=== PATIENT | male | born 1960 | race African-American/Black ===

== ENCOUNTER 2017-03-12 15:15 | Emergency (ER) | payer MEDICAID ==
[~2017-03-12] VITALS: Ht 170.2 cm; Wt 66.0 kg
[~2017-03-12 15:15] MED LIST: ALD50 PO; ASPI-1160 PO; BENA40TA66 PO; COR3 PO; CORLANOR PO; FURO-151 PO; HALO5TAB PO; METF500T4 PO; TAMS-11 PO
[2017-03-12] MEDS ORDERED: SODIUM CHLORIDE 0.9% 1,000 ML IV ONE (15:39)
[2017-03-12 15:59] LABS: EOSINOPHILS % 9.9 % (0.0-5.0); HEMATOCRIT. 43.4 % (42.0-52.0); HEMOGLOBIN. 14.2 g/dL (14.0-18.0); LYMPHOCYTES % 28.5 % (20.0-50.0); MEAN CORPUSCULAR HEMOGLOBIN 26.8 pg (28.0-32.0); MEAN CORPUSCULAR VOLUME 81.7 fL (80.0-94.0); MEAN PLATELET VOLUME 8.7 fl (7.4-10.4); MONOCYTES % 8.3 % (2.0-8.0); NEUTROPHILS % 52.3 % (40.0-76.0); PLATELET 200 x1000/uL (130-400); RED BLOOD CELL COUNT 5.31 mill/uL (4.7-6.1); RED CELL DISTRIBUTION WIDTH 14.8 % (11.6-14.6)
[2017-03-12 16:02] LABS: CHLORIDE 96 mEq/L (98-107)
[2017-03-12 16:08] LABS: AMYLASE 38 IU/L (25-115); CARBON DIOXIDE 27 mEq/L (21-32)
[2017-03-12 16:10] LABS: BETA HYDROXYBUTYRATE 0.5 mMol/L (0.0-0.3)
[2017-03-12 16:49] LABS: CLARITY URINE CLEAR (CLEAR); COLOR URINE YELLOW (YELLOW); GLUCOSE URINE 3+ (NEGATIVE); KETONES URINE TRACE (NEGATIVE); LEUKOCYTE ESTERASE URINE NEGATIVE (NEGATIVE); NITRITE URINE NEGATIVE (NEGATIVE); OCCULT BLOOD URINE NEGATIVE (NEGATIVE); PROTEIN URINE NEGATIVE (NEGATIVE); SPECIFIC GRAVITY URINE 1.045 (1.005-1.030); UROBILINOGEN URINE 0.2 E.U./dL (0.2-1.0)
[2017-03-12] MEDS ORDERED: INSULIN REGULAR (HUMULIN R) 300UNITS/3ML SUBCUT ONE (17:30)
[2017-03-12 19:00] VITALS: BP 115/86
== END 2017-03-12 19:08 | disposition home or self-care (01) ==
LOC: ER 15:36
DX: E11.65 Type 2 diabetes mellitus with hyperglycemia (principal); J44.9 Chronic obstructive pulmonary disease, unspecified; Z79.4 Long term (current) use of insulin; Z87.891 Personal history of nicotine dependence; Z79.82 Long term (current) use of aspirin
CPT/HCPCS: 36415; 80053; 81001; 82010; 82150; 82962; 83690; 85025; 93005; 96372; 99285; J1815; Z7610; J7030

== ENCOUNTER 2017-07-01 07:15 | Inpatient (IN) | payer MEDICAID ==
[2017-07-01] VITALS (44 sets, daily range): BP systolic 98–137; BP diastolic 58–98
[~2017-07-01] VITALS: Ht 172.7 cm; Wt 44.5 kg
[2017-07-01] MEDS ORDERED: SODIUM CHLORIDE 0.9% 1,000 ML IV ONE ×2 (07:29→08:18)
[2017-07-01 08:00] LABS: BASOPHILS % 0.8 % (0.0-2.0); EOSINOPHILS % 0.1 % (0.0-5.0); HEMATOCRIT. 55.3 % (42.0-52.0); LYMPHOCYTES % 13.5 % (20.0-50.0); MEAN CORPUSCULAR HEMOGLOBIN 28.4 pg (28.0-32.0); MEAN CORPUSCULAR VOLUME 92.3 fL (80.0-94.0); MEAN PLATELET VOLUME 9.7 fl (7.4-10.4); MONOCYTES % 5.5 % (2.0-8.0); NEUTROPHILS % 80.1 % (40.0-76.0); PLATELET 333 x1000/uL (130-400); RED BLOOD CELL COUNT 5.99 mill/uL (4.7-6.1); RED CELL DISTRIBUTION WIDTH 14.9 % (11.6-14.6)
[2017-07-01 08:07] LABS: AMMONIA 34 uMol/L (<32)
[2017-07-01 08:09] LABS: PROTHROMBIN TIME 10.7 sec (9.4-11.6)
[2017-07-01 08:16] LABS: BG BASE EXCESS -9.9 mmol/L (-2.0-2.0); BG CARBOXYHEMOGLOBIN 0.6 % (0.5-1.5); BG DEOXYHEMOGLOBIN 3.5 % (0.0-5.0); BG FRACTION INSPIRED OXYGEN 21; BG HCO3 ACT 15.2 mmol/L (22.0-26.0); BG METHEMOGLOBIN 0.5 % (0.0-1.5); BG OXYGEN SATURATION 96.5 % (92.0-98.5); BG OXYHEMOGLOBIN 95.4 % (94.0-97.0); BG PCO2 31.9 mmHg (35.0-45.0); BG PH 7.295 (7.350-7.450); BG PO2 96.3 mmHg (75.0-100.0); BG SAMPLE SITE RIGHT BRACHIAL; BG TOTAL HEMOGLOBIN 17.5 g/dL (12.0-18.0); BG VENT MODE ROOM AIR
[2017-07-01 08:16] LABS: CARBON DIOXIDE 16 mEq/L (21-32); CHLORIDE 87 mEq/L (98-107); ETHANOL BLOOD < 10 mg/dL; TROPONIN I < 0.02 ng/mL (0.00-0.04)
[2017-07-01] MEDS ORDERED: INSULIN REGULAR (DRIP) 100 UNITS in SODIUM CHLORIDE 0.9% 100 ML IV ONE (08:30)
[2017-07-01] MEDS ORDERED: INSULIN REGULAR (HUMULIN R) 300UNITS/3ML IV ONE (08:30)
[2017-07-01] MEDS ORDERED: PIPERACILLIN/TAZOBACTAM 3.375GM/50ML PREMIX IV ONE (08:30)
[2017-07-01] MEDS ORDERED: VANCOMYCIN 1 G PREMIX 200 ML IV SCH (08:30)
[2017-07-01] MEDS ORDERED: SODIUM CHLORIDE 0.9% 1,000 ML IV SCH ×2 (08:40→12:45)
[2017-07-01 08:42] LABS: CLARITY URINE CLEAR (CLEAR); COLOR URINE YELLOW (YELLOW); GLUCOSE URINE 3+ (NEGATIVE); KETONES URINE 1+ (NEGATIVE); LEUKOCYTE ESTERASE URINE NEGATIVE (NEGATIVE); NITRITE URINE NEGATIVE (NEGATIVE); OCCULT BLOOD URINE NEGATIVE (NEGATIVE); PROTEIN URINE NEGATIVE (NEGATIVE); SPECIFIC GRAVITY URINE 1.036 (1.005-1.030); UROBILINOGEN URINE 0.2 E.U./dL (0.2-1.0)
[2017-07-01] MEDS ORDERED: PIPERACILLIN/TAZ 3.375G PREMIX 50 ML IV SCH (08:45)
[2017-07-01] MEDS ORDERED: LORAZEPAM 2MG/ML CPJ IV ONE (09:00)
[2017-07-01] MEDS ORDERED: INSULIN REGULAR (DRIP) 100 UNITS in SODIUM CHLORIDE 0.9% 100 ML IV SCH ×2 (09:00→13:00)
[2017-07-01 09:12] LABS: *AMPHETAMINES SCREEN URINE NEGATIVE (NEGATIVE); *BARBITURATES SCREEN URINE NEGATIVE (NEGATIVE); *BENZODIAZEPINES SCREEN URINE NEGATIVE (NEGATIVE); *COCAINE SCREEN URINE NEGATIVE (NEGATIVE); CANNABINOID URINE SCREEN NEGATIVE (NEGATIVE); METHADONE URINE SCREEN NEGATIVE (NEGATIVE); OPIATES URINE SCREEN NEGATIVE (NEGATIVE); PHENCYCLIDINE URINE SCREEN NEGATIVE (NEGATIVE)
[2017-07-01] MEDS: BLOOD SUGAR DIAGNOSTIC STRIP TEST SCH ×7 (12:45→22:30)
[2017-07-01] MEDS ORDERED: DEXTROSE 50% WATER 50ML SYRINGE IV PRN ×2 (12:45)
[2017-07-01] MEDS ORDERED: HALOPERIDOL 0.5MG TABLET PO SCH (18:15)
[2017-07-01] MEDS ORDERED: DEXT 5%/0.45% NACL 1000ML 1,000 ML IV SCH (18:15)
[2017-07-01] MEDS ORDERED: CARVEDILOL 3.125 MG TABLET PO SCH ×2 (21:00)
[2017-07-01] MEDS: HALOPERIDOL 5MG TABLET PO SCH (22:46)
[2017-07-01] MEDS: METFORMIN HCL 500MG TABLET PO SCH (22:46)
[2017-07-01] MEDS: CARVEDILOL 3.125 MG TABLET PO SCH (22:47)
[2017-07-01 23:53] LABS: CHLORIDE 110 mEq/L (98-107)
[2017-07-02] VITALS (47 sets, daily range): BP systolic 82–127; BP diastolic 43–95
[2017-07-02] MEDS ORDERED: DEXTROSE 50% WATER 50ML SYRINGE IV PRN
[2017-07-02] MEDS ORDERED: INS NPH/REG HM 70-30 100 UNITS/ML 10ML VIAL (HUMULIN 70-30) SUBCUT ONE
[2017-07-02 00:03] LABS: CARBON DIOXIDE 27 mEq/L (21-32)
[2017-07-02] MEDS ORDERED: INSULIN REGULAR (HUMULIN R) 300UNITS/3ML SUBCUT SCH (01:00)
[2017-07-02 06:12] LABS: BASOPHILS % 0.9 % (0.0-2.0); EOSINOPHILS % 0.9 % (0.0-5.0); HEMATOCRIT. 44.4 % (42.0-52.0); HEMOGLOBIN. 14.5 g/dL (14.0-18.0); LYMPHOCYTES % 11.3 % (20.0-50.0); MEAN CORPUSCULAR HEMOGLOBIN 28.5 pg (28.0-32.0); MEAN PLATELET VOLUME 9.1 fl (7.4-10.4); MONOCYTES % 6.6 % (2.0-8.0); NEUTROPHILS % 80.3 % (40.0-76.0); PLATELET 241 x1000/uL (130-400); RED CELL DISTRIBUTION WIDTH 14.3 % (11.6-14.6)
[2017-07-02 06:21] LABS: CARBON DIOXIDE 24 mEq/L (21-32); CHLORIDE 110 mEq/L (98-107)
[2017-07-02] MEDS: HALOPERIDOL 5MG TABLET PO SCH ×3 (06:48→22:00)
[2017-07-02] MEDS: BLOOD SUGAR DIAGNOSTIC STRIP TEST SCH ×4 (07:57→20:06)
[2017-07-02] MEDS: SPIRONOLACTONE 25MG TABLET PO SCH (08:01)
[2017-07-02] MEDS: CARVEDILOL 3.125 MG TABLET PO SCH ×2 (08:02→20:07)
[2017-07-02] MEDS: BENAZEPRIL 20MG TABLET PO SCH (08:02)
[2017-07-02] MEDS: INSULIN LISPRO 100 UNITS/ML SUBCUT SCH ×7 (08:36→20:06)
[2017-07-02] MEDS: ASPIRIN 81MG TABLET PO SCH (08:37)
[2017-07-02] MEDS: TAMSULOSIN HCL 0.4MG SR CAPSULE PO SCH (08:37)
[2017-07-02] MEDS: METFORMIN HCL 500MG TABLET PO SCH ×2 (08:37→16:52)
[2017-07-02] MEDS ORDERED: FUROSEMIDE 40MG TABLET PO SCH ×2 (09:00)
[2017-07-02] MEDS ORDERED: ASPIRIN 81MG TABLET PO SCH ×2 (09:00)
[2017-07-02] MEDS ORDERED: SPIRONOLACTONE 50MG TABLET PO SCH (09:00)
[2017-07-02] MEDS ORDERED: TAMSULOSIN HCL 0.4MG SR CAPSULE PO SCH ×2 (09:00)
[2017-07-02] MEDS: INSULIN DETEMIR UD 100 UNITS/ML SYR SUBCUT SCH (09:59)
[2017-07-02] MEDS: GLIPIZIDE 5MG TABLET PO SCH ×2 (13:11→16:52)
[2017-07-02] MEDS: SERTRALINE HCL 50MG TABLET PO SCH (16:52)
[2017-07-02] MEDS ORDERED: HALOPERIDOL 5MG TABLET PO SCH (17:00)
[2017-07-02] MEDS ORDERED: INSULIN LISPRO 100 UNITS/ML SUBCUT SCH (17:50)
[2017-07-03] VITALS (9 sets, daily range): BP systolic 92–130; BP diastolic 65–84
[2017-07-03] MEDS: GLIPIZIDE 5MG TABLET PO SCH (05:51)
[2017-07-03] MEDS: BLOOD SUGAR DIAGNOSTIC STRIP TEST SCH ×2 (05:52→11:46)
[2017-07-03] MEDS: HALOPERIDOL 5MG TABLET PO SCH ×2 (05:52→13:11)
[2017-07-03] MEDS: INSULIN LISPRO 100 UNITS/ML SUBCUT SCH ×4 (06:03→11:46)
[2017-07-03] MEDS: SPIRONOLACTONE 25MG TABLET PO SCH (08:25)
[2017-07-03] MEDS: METFORMIN HCL 500MG TABLET PO SCH (08:25)
[2017-07-03] MEDS: TAMSULOSIN HCL 0.4MG SR CAPSULE PO SCH (08:26)
[2017-07-03] MEDS: BENAZEPRIL 20MG TABLET PO SCH (08:26)
[2017-07-03] MEDS: ASPIRIN 81MG TABLET PO SCH (08:27)
[2017-07-03] MEDS: CARVEDILOL 3.125 MG TABLET PO SCH (08:27)
[2017-07-03] MEDS: SERTRALINE HCL 50MG TABLET PO SCH (08:28)
[2017-07-03] MEDS: INSULIN DETEMIR UD 100 UNITS/ML SYR SUBCUT SCH (10:22)
== END 2017-07-03 15:05 | disposition home or self-care (01) | DRG 52 ==
LOC: ER 07:15 → CVICU 08:42 → ENRESERV 08:52 → 3WST 07-02 14:15
PROVIDERS: ADMIT Internal Medicine Nephrology; ATTEND Internal Medicine Nephrology
DX: G93.41 Metabolic encephalopathy (principal); E13.10 Other specified diabetes mellitus with ketoacidosis without coma; E44.0 Moderate protein-calorie malnutrition; E13.649 Other specified diabetes mellitus with hypoglycemia without coma; I11.0 Hypertensive heart disease with heart failure; I50.9 Heart failure, unspecified; F91.9 Conduct disorder, unspecified; Z79.84 Long term (current) use of oral hypoglycemic drugs; Z79.82 Long term (current) use of aspirin; Z79.899 Other long term (current) drug therapy; Z91.410 Personal history of adult physical and sexual abuse; Z83.3 Family history of diabetes mellitus; Z82.5 Family history of asthma and other chronic lower respiratory diseases; Z82.49 Family history of ischemic heart disease and other diseases of the circulatory system
CPT/HCPCS: 36415; 36600; 70450; 71010; 80048; 80053; 80305; 80307; 80329; 81001; 82010; 82140; 82375; 82805; 82962; 83036; 83605; 83690; 83880; 84443; 84484; 85025; 85610; 87040; 87086; 93005; 96361; 96365; 96367; 96375; 99285; G0482; J1630; J1815; J2543; J3370; J7030; J7050

== ENCOUNTER 2017-07-13 11:33 | Inpatient (IN) | payer MEDICAID ==
[~2017-07-13] VITALS: Ht 172.7 cm; Wt 65.8 kg
[2017-07-13] MEDS ORDERED: ACETAMINOPHEN 325MG TABLET PO STA (11:40)
[2017-07-13 12:04] LABS: CLARITY URINE CLEAR (CLEAR); COLOR URINE YELLOW (YELLOW); GLUCOSE URINE 3+ (NEGATIVE); KETONES URINE 2+ (NEGATIVE); LEUKOCYTE ESTERASE URINE NEGATIVE (NEGATIVE); NITRITE URINE NEGATIVE (NEGATIVE); OCCULT BLOOD URINE NEGATIVE (NEGATIVE); PROTEIN URINE NEGATIVE (NEGATIVE); SPECIFIC GRAVITY URINE 1.043 (1.005-1.030); UROBILINOGEN URINE 0.2 E.U./dL (0.2-1.0)
[2017-07-13 12:09] LABS: BASOPHILS % 0.5 % (0.0-2.0); EOSINOPHILS % 1.1 % (0.0-5.0); HEMOGLOBIN. 15.5 g/dL (14.0-18.0); LYMPHOCYTES % 20.1 % (20.0-50.0); MEAN CORPUSCULAR HEMOGLOBIN 28.6 pg (28.0-32.0); MEAN CORPUSCULAR VOLUME 86.8 fL (80.0-94.0); MEAN PLATELET VOLUME 8.4 fl (7.4-10.4); MONOCYTES % 5.1 % (2.0-8.0); NEUTROPHILS % 73.2 % (40.0-76.0); PLATELET 231 x1000/uL (130-400); RED BLOOD CELL COUNT 5.41 mill/uL (4.7-6.1); RED CELL DISTRIBUTION WIDTH 13.5 % (11.6-14.6)
[2017-07-13 12:10] LABS: PROTHROMBIN TIME 10.7 sec (9.4-11.6)
[2017-07-13 12:18] LABS: CARBON DIOXIDE 27 mEq/L (21-32); CHLORIDE 93 mEq/L (98-107)
[2017-07-13] MEDS ORDERED: SODIUM CHLORIDE 0.9% 1,000 ML IV ONE (12:29)
[2017-07-13] MEDS ORDERED: INSULIN REGULAR (HUMULIN R) 300UNITS/3ML IV ONE (12:30)
[2017-07-13 12:42] LABS: BG BASE EXCESS -1.3 mmol/L (-2.0-2.0); BG CARBOXYHEMOGLOBIN 0.9 % (0.5-1.5); BG DEOXYHEMOGLOBIN 2.7 % (0.0-5.0); BG FRACTION INSPIRED OXYGEN 21; BG METHEMOGLOBIN 0.3 % (0.0-1.5); BG OXYGEN SATURATION 97.3 % (92.0-98.5); BG OXYHEMOGLOBIN 96.1 % (94.0-97.0); BG PCO2 37.6 mmHg (35.0-45.0); BG PH 7.404 (7.350-7.450); BG SAMPLE SITE RIGHT RADIAL; BG TOTAL HEMOGLOBIN 15.7 g/dL (12.0-18.0); BG VENT MODE ROOM AIR
[2017-07-13] MEDS ORDERED: KETOROLAC 15MG/ML VIAL IV PRN (13:15)
[2017-07-13] MEDS ORDERED: CLONIDINE 0.1MG TABLET PO PRN (13:15)
[2017-07-13] MEDS ORDERED: MAGNESIUM/ALUMINUM HYDROXIDE/SIMETHICONE 30ML UDC PO PRN (13:15)
[2017-07-13] MEDS ORDERED: DOCUSATE SODIUM 100MG CAPSULE PO PRN (13:15)
[2017-07-13] MEDS ORDERED: NITROGLYCERIN 0.4MG TABLET SL SL PRN (13:15)
[2017-07-13] MEDS ORDERED: LORAZEPAM 2MG/ML CPJ IV PRN (13:15)
[2017-07-13] MEDS ORDERED: GUAIFENESIN 200MG/10ML SUGAR FREE UDC PO PRN (13:15)
[2017-07-13] MEDS ORDERED: ONDANSETRON HCL 4MG/2ML VIAL IV PRN (13:15)
[2017-07-13] MEDS ORDERED: IPRATROPIUM/ALBUTEROL 0.5-3(2.5)MG/3ML NEB INH PRN (13:15)
[2017-07-13] MEDS ORDERED: DIPHENHYDRAMINE 50MG/ML VIAL IV PRN (13:15)
[2017-07-13] MEDS ORDERED: NA PHOS,M-B/NA PHOS,DI-BA ENEMA 118ML PR PRN (13:15)
[2017-07-13] MEDS ORDERED: ACETAMINOPHEN 325MG TABLET PO PRN (13:15)
[2017-07-13] MEDS ORDERED: DEXTROSE 50% WATER 50ML SYRINGE IV PRN (13:15)
[2017-07-13 14:52] LABS: *AMPHETAMINES SCREEN URINE NEGATIVE (NEGATIVE); *BARBITURATES SCREEN URINE NEGATIVE (NEGATIVE); *BENZODIAZEPINES SCREEN URINE NEGATIVE (NEGATIVE); *COCAINE SCREEN URINE NEGATIVE (NEGATIVE); CANNABINOID URINE SCREEN NEGATIVE (NEGATIVE); METHADONE URINE SCREEN NEGATIVE (NEGATIVE); OPIATES URINE SCREEN NEGATIVE (NEGATIVE); PHENCYCLIDINE URINE SCREEN NEGATIVE (NEGATIVE)
[2017-07-13 15:06] LABS: CREATINE KINASE 78 IU/L (39-308); CREATINE KINASE MB FRACTION 2.1 ng/mL (0.5-3.6); HDL CHOLESTEROL 68 mg/dL (40-59); LDL CHOLESTEROL 108 mg/dL (5-100); TROPONIN I < 0.02 ng/mL (0.00-0.04)
[2017-07-13] MEDS: INSULIN LISPRO 100 UNITS/ML SUBCUT SCH ×3 (16:25→23:37)
[2017-07-13] MEDS: ENOXAPARIN 40MG/0.4ML SYR SUBCUT SCH (16:26)
[2017-07-13] MEDS: CARVEDILOL 3.125 MG TABLET PO SCH (17:27)
[2017-07-13 20:20] VITALS: BP 129/82
[2017-07-13] MEDS ORDERED: ZOLPIDEM TARTRATE 5MG TABLET PO PRN (20:30)
[2017-07-13 21:00] VITALS: BP 129/82
[2017-07-13] MEDS: LISINOPRIL 20MG TABLET PO SCH ×2 (21:00→22:12)
[2017-07-13] MEDS: BLOOD SUGAR DIAGNOSTIC STRIP TEST SCH (21:00)
[2017-07-13] MEDS ORDERED: INSULIN DETEMIR UD 100 UNITS/ML SYR SUBCUT SCH (22:00)
[2017-07-13] MEDS: FUROSEMIDE 40MG/4ML VIAL IVP SCH (22:12)
[2017-07-13] MEDS: SPIRONOLACTONE 25MG TABLET PO SCH (22:12)
[2017-07-13] MEDS: FAMOTIDINE 20MG/2ML VIAL IV SCH (22:13)
[2017-07-13 23:15] LABS: CREATINE KINASE 77 IU/L (39-308); CREATINE KINASE MB FRACTION 2.1 ng/mL (0.5-3.6); TROPONIN I < 0.02 ng/mL (0.00-0.04)
[2017-07-14] VITALS: BP 106/80
[2017-07-14 04:00] VITALS: BP 99/74
[2017-07-14] MEDS ORDERED: ATOR20TA65 PO (05:05)
[2017-07-14] MEDS ORDERED: SERT25TA74 PO (05:06)
[2017-07-14] MEDS: CARVEDILOL 3.125 MG TABLET PO SCH ×2 (05:57→17:42)
[2017-07-14] MEDS: BLOOD SUGAR DIAGNOSTIC STRIP TEST SCH ×3 (06:15→17:04)
[2017-07-14] MEDS: INSULIN LISPRO 100 UNITS/ML SUBCUT SCH ×6 (06:58→17:04)
[2017-07-14 08:00] VITALS: BP 110/78
[2017-07-14] MEDS: SPIRONOLACTONE 25MG TABLET PO SCH (08:11)
[2017-07-14] MEDS: FAMOTIDINE 20MG/2ML VIAL IV SCH (08:13)
[2017-07-14] MEDS: FUROSEMIDE 40MG/4ML VIAL IVP SCH (08:13)
[2017-07-14] MEDS: LISINOPRIL 20MG TABLET PO SCH (08:14)
[2017-07-14] MEDS ORDERED: ASPIRIN 325MG EC TABLET PO SCH (09:00)
[2017-07-14 12:00] VITALS: BP 104/79
[2017-07-14 16:00] VITALS: BP 101/77
[2017-07-14] MEDS: ENOXAPARIN 40MG/0.4ML SYR SUBCUT SCH (16:59)
[2017-07-14 18:05] VITALS: BP 116/78
== END 2017-07-14 18:58 | disposition home or self-care (01) | DRG 420 ==
LOC: ER 12:08 → 8WST 16:06 → EDBEDREQ 16:07 → ENRESERV 18:43
PROVIDERS: ADMIT Internal Medicine; ATTEND Internal Medicine
DX: E11.00 Type 2 diabetes mellitus with hyperosmolarity without nonketotic hyperglycemic-hyperosmolar coma (NKHHC) (principal); G93.40 Encephalopathy, unspecified; I11.0 Hypertensive heart disease with heart failure; I50.9 Heart failure, unspecified; E11.65 Type 2 diabetes mellitus with hyperglycemia; E87.1 Hypo-osmolality and hyponatremia; Z59.0 Homelessness; Z82.49 Family history of ischemic heart disease and other diseases of the circulatory system; Z82.5 Family history of asthma and other chronic lower respiratory diseases; Z83.3 Family history of diabetes mellitus; Z86.73 Personal history of transient ischemic attack (TIA), and cerebral infarction without residual deficits; Z95.810 Presence of automatic (implantable) cardiac defibrillator; Z79.84 Long term (current) use of oral hypoglycemic drugs; Z79.899 Other long term (current) drug therapy
CPT/HCPCS: 36415; 36600; 70450; 71010; 80053; 80061; 80305; 81001; 82010; 82375; 82550; 82553; 82805; 82962; 83036; 84484; 85025; 85610; 93005; 93970; 96361; 96374; 96375; 99285; J1650; J1815; J1940; J2060; J3490; J7030

== ENCOUNTER 2017-07-23 13:25 | Inpatient (IN) | payer MEDICAID ==
[~2017-07-23] VITALS: Ht 170.2 cm; Wt 53.5 kg
[~2017-07-23 13:25] MED LIST changes: +ATOR20TA65 PO; +SERT25TA74 PO
[2017-07-23] MEDS ORDERED: SODIUM CHLORIDE 0.9% 2,000 ML IV ONE (14:01)
[2017-07-23] MEDS ORDERED: INSULIN REGULAR (HUMULIN R) 300UNITS/3ML SUBCUT ONE (14:15)
[2017-07-23 14:31] LABS: EOSINOPHILS % 1.9 % (0.0-5.0); HEMATOCRIT. 38.2 % (42.0-52.0); HEMOGLOBIN. 12.5 g/dL (14.0-18.0); LYMPHOCYTES % 19.8 % (20.0-50.0); MEAN CORPUSCULAR HEMOGLOBIN 28.7 pg (28.0-32.0); MEAN CORPUSCULAR VOLUME 87.2 fL (80.0-94.0); MEAN PLATELET VOLUME 8.2 fl (7.4-10.4); MONOCYTES % 10.7 % (2.0-8.0); NEUTROPHILS % 66.6 % (40.0-76.0); PLATELET 199 x1000/uL (130-400); RED BLOOD CELL COUNT 4.37 mill/uL (4.7-6.1); RED CELL DISTRIBUTION WIDTH 14.6 % (11.6-14.6)
[2017-07-23 14:36] LABS: CARBON DIOXIDE 26 mEq/L (21-32); CHLORIDE 95 mEq/L (98-107)
[2017-07-23 14:42] LABS: BETA HYDROXYBUTYRATE 0.4 mMol/L (0.0-0.3)
[2017-07-23 15:37] LABS: CLARITY URINE CLEAR (CLEAR); COLOR URINE YELLOW (YELLOW); GLUCOSE URINE 3+ (NEGATIVE); KETONES URINE NEGATIVE (NEGATIVE); LEUKOCYTE ESTERASE URINE NEGATIVE (NEGATIVE); NITRITE URINE NEGATIVE (NEGATIVE); OCCULT BLOOD URINE NEGATIVE (NEGATIVE); PH URINE 5.5 (4.5-8.0); PROTEIN URINE NEGATIVE (NEGATIVE); SPECIFIC GRAVITY URINE 1.042 (1.005-1.030); UROBILINOGEN URINE 0.2 E.U./dL (0.2-1.0)
[2017-07-23] MEDS ORDERED: ASPIRIN 81MG TABLET PO SCH (22:45)
[2017-07-23] MEDS ORDERED: MORPHINE SULFATE 10 MG/ML CPJ IV PRN (22:45)
[2017-07-23] MEDS ORDERED: DEXTROSE 50% WATER 50ML SYRINGE IV PRN (22:45)
[2017-07-23] MEDS ORDERED: SERTRALINE HCL 25MG TABLET PO SCH (22:45)
[2017-07-23] MEDS ORDERED: HALOPERIDOL 5MG TABLET PO SCH (22:45)
[2017-07-23] MEDS ORDERED: TAMSULOSIN HCL 0.4MG SR CAPSULE PO SCH (22:45)
[2017-07-23 23:30] VITALS: BP 112/71
[2017-07-23] MEDS: ENOXAPARIN 40MG/0.4ML SYR SUBCUT SCH (23:38)
[2017-07-23] MEDS: INSULIN LISPRO 100 UNITS/ML SUBCUT SCH (23:56)
[2017-07-24] VITALS: BP 112/71
[2017-07-24 04:00] VITALS: BP 106/76
[2017-07-24 06:26] LABS: HEMATOCRIT 36.8 % (42.0-52.0); HEMOGLOBIN 12.1 g/dL (14.0-18.0); MEAN CORPUSCULAR HEMOGLOBIN 28.5 pg (28.0-32.0); MEAN CORPUSCULAR VOLUME 86.3 fL (80.0-94.0); PLATELET 195 x1000/uL (130-400); RED BLOOD CELL COUNT 4.27 mill/uL (4.7-6.1)
[2017-07-24] MEDS: BLOOD SUGAR DIAGNOSTIC STRIP TEST SCH ×4 (06:48→21:00)
[2017-07-24] MEDS: FUROSEMIDE 40MG TABLET PO SCH ×2 (06:48→17:48)
[2017-07-24 07:36] LABS: CARBON DIOXIDE 28 mEq/L (21-32); CHLORIDE 109 mEq/L (98-107)
[2017-07-24 08:00] VITALS: BP 98/66
[2017-07-24] MEDS: INSULIN LISPRO 100 UNITS/ML SUBCUT SCH ×3 (09:39→18:40)
[2017-07-24] MEDS: SPIRONOLACTONE 25MG TABLET PO SCH (09:43)
[2017-07-24] MEDS: TAMSULOSIN HCL 0.4MG SR CAPSULE PO SCH (09:44)
[2017-07-24] MEDS: CARVEDILOL 3.125 MG TABLET PO SCH ×2 (09:44→20:43)
[2017-07-24] MEDS: SERTRALINE HCL 25MG TABLET PO SCH ×2 (09:45→10:04)
[2017-07-24] MEDS: HALOPERIDOL 5MG TABLET PO SCH ×4 (09:45→17:00)
[2017-07-24] MEDS: ASPIRIN 81MG TABLET PO SCH (09:45)
[2017-07-24 12:00] VITALS: BP 107/79
[2017-07-24 16:00] VITALS: BP 97/70
[2017-07-24 20:00] VITALS: BP 91/60
[2017-07-24] MEDS: ATORVASTATIN CALCIUM 20MG TABLET PO SCH (20:42)
[2017-07-24] MEDS: ENOXAPARIN 40MG/0.4ML SYR SUBCUT SCH (20:43)
[2017-07-25] VITALS: BP 100/60
[2017-07-25 04:00] VITALS: BP 107/73
[2017-07-25] MEDS: BLOOD SUGAR DIAGNOSTIC STRIP TEST SCH ×4 (06:43→21:00)
[2017-07-25] MEDS: FUROSEMIDE 40MG TABLET PO SCH ×2 (06:43→17:15)
[2017-07-25 08:00] VITALS: BP 107/74
[2017-07-25] MEDS: INSULIN LISPRO 100 UNITS/ML SUBCUT SCH ×4 (08:37→22:28)
[2017-07-25] MEDS: HALOPERIDOL 5MG TABLET PO SCH ×3 (09:00→17:00)
[2017-07-25] MEDS: SPIRONOLACTONE 25MG TABLET PO SCH (09:00)
[2017-07-25] MEDS: SERTRALINE HCL 25MG TABLET PO SCH (09:00)
[2017-07-25] MEDS: ASPIRIN 81MG TABLET PO SCH (09:10)
[2017-07-25] MEDS: TAMSULOSIN HCL 0.4MG SR CAPSULE PO SCH (09:11)
[2017-07-25] MEDS: CARVEDILOL 3.125 MG TABLET PO SCH ×2 (09:12→21:00)
[2017-07-25 12:00] VITALS: BP 102/69
[2017-07-25 16:00] VITALS: BP 95/60
[2017-07-25 20:00] VITALS: BP 102/72
[2017-07-25] MEDS: ENOXAPARIN 40MG/0.4ML SYR SUBCUT SCH (21:00)
[2017-07-25] MEDS: ATORVASTATIN CALCIUM 20MG TABLET PO SCH (21:00)
[2017-07-26] VITALS (7 sets, daily range): BP systolic 90–103; BP diastolic 60–72
[2017-07-26] MEDS: BLOOD SUGAR DIAGNOSTIC STRIP TEST SCH ×4 (06:21→20:08)
[2017-07-26] MEDS: FUROSEMIDE 40MG TABLET PO SCH ×2 (06:21→17:28)
[2017-07-26 07:07] LABS: BASOPHILS % 1.1 % (0.0-2.0); EOSINOPHILS % 4.4 % (0.0-5.0); HEMATOCRIT. 36.5 % (42.0-52.0); HEMOGLOBIN. 12.3 g/dL (14.0-18.0); LYMPHOCYTES % 36.4 % (20.0-50.0); MEAN CORPUSCULAR HEMOGLOBIN 28.8 pg (28.0-32.0); MEAN CORPUSCULAR VOLUME 85.4 fL (80.0-94.0); MEAN PLATELET VOLUME 7.9 fl (7.4-10.4); MONOCYTES % 10.1 % (2.0-8.0); PLATELET 203 x1000/uL (130-400); RED BLOOD CELL COUNT 4.28 mill/uL (4.7-6.1); RED CELL DISTRIBUTION WIDTH 14.2 % (11.6-14.6)
[2017-07-26 07:51] LABS: CARBON DIOXIDE 29 mEq/L (21-32); CHLORIDE 103 mEq/L (98-107)
[2017-07-26] MEDS: CARVEDILOL 3.125 MG TABLET PO SCH ×2 (09:00→20:07)
[2017-07-26] MEDS: SERTRALINE HCL 25MG TABLET PO SCH (09:00)
[2017-07-26] MEDS: HALOPERIDOL 5MG TABLET PO SCH ×4 (09:00→17:26)
[2017-07-26] MEDS: SPIRONOLACTONE 25MG TABLET PO SCH (09:00)
[2017-07-26] MEDS: ASPIRIN 81MG TABLET PO SCH (09:29)
[2017-07-26] MEDS: TAMSULOSIN HCL 0.4MG SR CAPSULE PO SCH (09:30)
[2017-07-26] MEDS: INSULIN LISPRO 100 UNITS/ML SUBCUT SCH ×4 (09:38→20:32)
[2017-07-26] MEDS: ATORVASTATIN CALCIUM 20MG TABLET PO SCH (20:07)
[2017-07-26] MEDS: ENOXAPARIN 40MG/0.4ML SYR SUBCUT SCH (20:08)
== END 2017-07-26 20:50 | disposition home or self-care (01) | DRG 420 ==
LOC: ER 13:28 → 6EST 17:31 → ENRESERV 17:57 → ER 21:10
PROVIDERS: ADMIT Internal Medicine; ATTEND Internal Medicine
DX: E11.00 Type 2 diabetes mellitus with hyperosmolarity without nonketotic hyperglycemic-hyperosmolar coma (NKHHC) (principal); I42.9 Cardiomyopathy, unspecified; I50.20 Unspecified systolic (congestive) heart failure; I11.0 Hypertensive heart disease with heart failure; E11.65 Type 2 diabetes mellitus with hyperglycemia; K74.60 Unspecified cirrhosis of liver; E78.5 Hyperlipidemia, unspecified; I34.0 Nonrheumatic mitral (valve) insufficiency; K59.00 Constipation, unspecified; Z59.0 Homelessness; Z79.4 Long term (current) use of insulin; Z95.810 Presence of automatic (implantable) cardiac defibrillator
CPT/HCPCS: 36415; 80048; 80053; 81001; 82010; 82962; 83036; 83690; 85025; 85027; 87086; 96360; 96372; 99285; J1630; J1650; J1815; J7030

== ENCOUNTER 2017-09-11 06:55 | Emergency (ER) | payer MEDICAID ==
[~2017-09-11] VITALS: Ht 170.2 cm; Wt 63.0 kg
[2017-09-11] MEDS ORDERED: SODIUM CHLORIDE 0.9% 1,000 ML IV ONE (07:18)
[2017-09-11] MEDS ORDERED: MAGNESIUM CITRATE 300ML SOLUTION PO ONE (07:30)
[2017-09-11] MEDS ORDERED: LACTULOSE 20G/30ML UDC PO ONE (07:30)
[2017-09-11 07:38] LABS: BASOPHILS % 1.8 % (0.0-2.0); EOSINOPHILS % 3.9 % (0.0-5.0); HEMOGLOBIN. 10.7 g/dL (14.0-18.0); LYMPHOCYTES % 32.9 % (20.0-50.0); MEAN CORPUSCULAR HEMOGLOBIN 29.4 pg (28.0-32.0); MEAN CORPUSCULAR VOLUME 87.7 fL (80.0-94.0); MEAN PLATELET VOLUME 7.2 fl (7.4-10.4); NEUTROPHILS % 50.4 % (40.0-76.0); PLATELET 218 x1000/uL (130-400); RED BLOOD CELL COUNT 3.65 mill/uL (4.7-6.1); RED CELL DISTRIBUTION WIDTH 16.3 % (11.6-14.6)
[2017-09-11 07:43] LABS: BG BASE EXCESS 1.6 mmol/L (-2.0-2.0); BG CARBOXYHEMOGLOBIN 0.4 % (0.5-1.5); BG DEOXYHEMOGLOBIN 5.7 % (0.0-5.0); BG FRACTION INSPIRED OXYGEN 21; BG HCO3 ACT 27.2 mmol/L (22.0-26.0); BG METHEMOGLOBIN 0.3 % (0.0-1.5); BG OXYGEN SATURATION 94.3 % (92.0-98.5); BG OXYHEMOGLOBIN 93.6 % (94.0-97.0); BG PCO2 47.1 mmHg (35.0-45.0); BG PH 7.379 (7.350-7.450); BG PO2 72.6 mmHg (75.0-100.0); BG SAMPLE SITE RIGHT BRACHIAL; BG TOTAL HEMOGLOBIN 11.3 g/dL (12.0-18.0); BG VENT MODE ROOM AIR
[2017-09-11 07:54] LABS: BETA HYDROXYBUTYRATE 0.1 mMol/L (0.0-0.3); CARBON DIOXIDE 31 mEq/L (21-32); CHLORIDE 106 mEq/L (98-107)
[2017-09-11] MEDS ORDERED: LORAZEPAM 1MG TABLET PO ONE (18:00)
[2017-09-11 19:25] VITALS: BP 137/81
== END 2017-09-11 19:57 | disposition home or self-care (01) ==
LOC: ER 07:21
DX: K59.00 Constipation, unspecified (principal); R41.82 Altered mental status, unspecified; I11.0 Hypertensive heart disease with heart failure; I50.9 Heart failure, unspecified; E11.9 Type 2 diabetes mellitus without complications; F20.9 Schizophrenia, unspecified; Z79.82 Long term (current) use of aspirin
CPT/HCPCS: 36415; 36600; 70450; 74000; 80053; 82010; 82375; 82805; 82962; 85025; 93005; 96360; 96361; 99285; J7030

== ENCOUNTER 2017-10-07 01:28 | Inpatient (IN) | payer MEDICAID ==
[~2017-10-07] VITALS: Ht 170.2 cm; Wt 44.0 kg
[2017-10-07] MEDS ORDERED: SODIUM CHLORIDE 0.9% 1,000 ML IV STA (02:06)
[2017-10-07] MEDS ORDERED: ASPIRIN 81MG TABLET PO STA (02:06)
[2017-10-07 02:50] LABS: EOSINOPHILS % 0.5 % (0.0-5.0); HEMOGLOBIN. 14.7 g/dL (14.0-18.0); LYMPHOCYTES % 19.3 % (20.0-50.0); MEAN CORPUSCULAR HEMOGLOBIN 29.3 pg (28.0-32.0); MEAN CORPUSCULAR VOLUME 91.3 fL (80.0-94.0); MEAN PLATELET VOLUME 8.4 fl (7.4-10.4); MONOCYTES % 8.1 % (2.0-8.0); NEUTROPHILS % 71.1 % (40.0-76.0); PLATELET 294 x1000/uL (130-400); RED BLOOD CELL COUNT 5.04 mill/uL (4.7-6.1); RED CELL DISTRIBUTION WIDTH 16.2 % (11.6-14.6)
[2017-10-07 02:52] LABS: CLARITY URINE CLEAR (CLEAR); COLOR URINE YELLOW (YELLOW); KETONES URINE 2+ (NEGATIVE); LEUKOCYTE ESTERASE URINE NEGATIVE (NEGATIVE); NITRITE URINE NEGATIVE (NEGATIVE); OCCULT BLOOD URINE NEGATIVE (NEGATIVE); PROTEIN URINE NEGATIVE (NEGATIVE); SPECIFIC GRAVITY URINE 1.042 (1.005-1.030); UROBILINOGEN URINE 0.2 E.U./dL (0.2-1.0)
[2017-10-07 02:55] LABS: PROTHROMBIN TIME 10.2 sec (9.4-11.6)
[2017-10-07 03:04] LABS: CARBON DIOXIDE 23 mEq/L (21-32); CHLORIDE 91 mEq/L (98-107)
[2017-10-07 03:05] LABS: ETHANOL BLOOD < 10 mg/dL; PHOSPHORUS 4.2 mg/dL (2.5-4.9); TROPONIN I < 0.02 ng/mL (0.00-0.04)
[2017-10-07 03:10] LABS: *AMPHETAMINES SCREEN URINE NEGATIVE (NEGATIVE); *BARBITURATES SCREEN URINE NEGATIVE (NEGATIVE); *BENZODIAZEPINES SCREEN URINE NEGATIVE (NEGATIVE); *COCAINE SCREEN URINE NEGATIVE (NEGATIVE); CANNABINOID URINE SCREEN NEGATIVE (NEGATIVE); METHADONE URINE SCREEN NEGATIVE (NEGATIVE); OPIATES URINE SCREEN NEGATIVE (NEGATIVE); PHENCYCLIDINE URINE SCREEN NEGATIVE (NEGATIVE)
[2017-10-07] MEDS ORDERED: INSULIN REGULAR (DRIP) 100 UNITS in SODIUM CHLORIDE 0.9% 100 ML IV ONE (03:24)
[2017-10-07] MEDS ORDERED: POTASSIUM CHLORIDE INJ 20 MEQ in SODIUM CHLORIDE 0.9% 1,000 ML IV SCH (03:30)
[2017-10-07] MEDS ORDERED: SODIUM CHLORIDE 0.9% 1,000 ML IV ONE (03:30)
[2017-10-07 04:08] LABS: BG BASE EXCESS -4.7 mmol/L (-2.0-2.0); BG CARBOXYHEMOGLOBIN 0.4 % (0.5-1.5); BG DEOXYHEMOGLOBIN 3.9 % (0.0-5.0); BG FRACTION INSPIRED OXYGEN 21; BG HCO3 ACT 20.9 mmol/L (22.0-26.0); BG METHEMOGLOBIN 0.2 % (0.0-1.5); BG OXYGEN SATURATION 96.1 % (92.0-98.5); BG OXYHEMOGLOBIN 95.5 % (94.0-97.0); BG PCO2 40.5 mmHg (35.0-45.0); BG PH 7.331 (7.350-7.450); BG PO2 83.3 mmHg (75.0-100.0); BG SAMPLE SITE RIGHT RADIAL; BG TOTAL HEMOGLOBIN 13.9 g/dL (12.0-18.0); BG VENT MODE ROOM AIR
[2017-10-07 04:36] LABS: PHOSPHORUS 3.7 mg/dL (2.5-4.9)
[2017-10-07 08:03] LABS: PHOSPHORUS 2.3 mg/dL (2.5-4.9)
[2017-10-07] MEDS ORDERED: ACETAMINOPHEN 325MG TABLET PO PRN (10:45)
[2017-10-07] MEDS ORDERED: IPRATROPIUM/ALBUTEROL 0.5-3(2.5)MG/3ML NEB INH PRN (10:45)
[2017-10-07] MEDS ORDERED: DEXTROSE 50% WATER 50ML SYRINGE IV PRN (10:45)
[2017-10-07] MEDS ORDERED: HYDROCODONE/ACETAMINOPHEN 5/325MG TABLET PO PRN (10:45)
[2017-10-07] MEDS ORDERED: CLONIDINE 0.1MG TABLET PO PRN (10:45)
[2017-10-07] MEDS ORDERED: ONDANSETRON HCL 4MG/2ML VIAL IV PRN (10:45)
[2017-10-07] MEDS ORDERED: DIPHENHYDRAMINE 50MG/ML VIAL IV PRN (10:45)
[2017-10-07] MEDS ORDERED: INSULIN GLARGINE UD 100 UNITS/ML SYR SUBCUT SCH ×2 (11:00→22:00)
[2017-10-07] MEDS: INSULIN LISPRO 100 UNITS/ML SUBCUT SCH ×3 (13:43→21:55)
[2017-10-07] MEDS: BLOOD SUGAR DIAGNOSTIC STRIP TEST SCH ×2 (17:00→21:43)
[2017-10-07 17:25] VITALS: BP 107/82
[2017-10-07 20:00] VITALS: BP 95/63
[2017-10-07] MEDS: INSULIN GLARGINE UD 100 UNITS/ML SYR SUBCUT SCH (23:14)
[2017-10-08] VITALS: BP 92/65
[2017-10-08] MEDS ORDERED: POTASSIUM CHLORIDE INJ 20 MEQ in SODIUM CHLORIDE 0.9% 1,000 ML IV SCH ×2
[2017-10-08 04:00] VITALS: BP 117/84
[2017-10-08] MEDS: BLOOD SUGAR DIAGNOSTIC STRIP TEST SCH ×3 (06:06→17:20)
[2017-10-08 08:00] VITALS: BP 104/76
[2017-10-08] MEDS: INSULIN LISPRO 100 UNITS/ML SUBCUT SCH ×2 (08:55→13:49)
[2017-10-08] MEDS: INSULIN GLARGINE UD 100 UNITS/ML SYR SUBCUT SCH (10:45)
[2017-10-08 12:00] VITALS: BP 91/66
[2017-10-08] MEDS: HALOPERIDOL 5MG TABLET PO SCH ×2 (13:16→17:00)
[2017-10-08 15:48] VITALS: BP 124/72
[2017-10-08] MEDS: FUROSEMIDE 40MG TABLET PO SCH ×2 (17:00→17:15)
[2017-10-08] MEDS ORDERED: METFORMIN HCL 500MG TABLET PO SCH (17:50)
[2017-10-08] MEDS ORDERED: CARVEDILOL 3.125 MG TABLET PO SCH (21:00)
[2017-10-08] MEDS ORDERED: ATORVASTATIN CALCIUM 20MG TABLET PO SCH (21:00)
[2017-10-09] MEDS ORDERED: SERTRALINE HCL 25MG TABLET PO SCH (09:00)
[2017-10-09] MEDS ORDERED: TAMSULOSIN HCL 0.4MG SR CAPSULE PO SCH (09:00)
[2017-10-09] MEDS ORDERED: SPIRONOLACTONE 50MG TABLET PO SCH (09:00)
[2017-10-09] MEDS ORDERED: ASPIRIN 81MG TABLET PO SCH (13:00)
== END 2017-10-08 17:43 | disposition home or self-care (01) | DRG 420 ==
LOC: ER 01:28 → 6WST 03:47 → EDBEDREQ 03:50 → EDBEDREQTM 03:50 → EDBEDREQSVC 03:55 → CANBEDREQ 11:28 → EDBEDREQ 12:38 → EDBEDREQTM 12:38 → EDBEDREQSVC 13:28 → EDBEDREQ 16:37 → EDBEDREQSVC 16:37 → EDBEDREQTM 16:37 → EDBEDREQSVC 16:39
PROVIDERS: ADMIT Internal Medicine; ATTEND Internal Medicine
DX: E11.10 Type 2 diabetes mellitus with ketoacidosis without coma (principal); I11.0 Hypertensive heart disease with heart failure; I50.9 Heart failure, unspecified; F20.9 Schizophrenia, unspecified; I25.10 Atherosclerotic heart disease of native coronary artery without angina pectoris; I48.91 Unspecified atrial fibrillation; I69.351 Hemiplegia and hemiparesis following cerebral infarction affecting right dominant side; Z59.0 Homelessness; Z79.84 Long term (current) use of oral hypoglycemic drugs; Z79.899 Other long term (current) drug therapy; Z82.49 Family history of ischemic heart disease and other diseases of the circulatory system; Z82.5 Family history of asthma and other chronic lower respiratory diseases; Z83.3 Family history of diabetes mellitus; Z91.14 Patient's other noncompliance with medication regimen; Z91.19 Patient's noncompliance with other medical treatment and regimen; Z95.810 Presence of automatic (implantable) cardiac defibrillator; Z79.82 Long term (current) use of aspirin
CPT/HCPCS: 36415; 36600; 70450; 71045; 80053; 80305; 81001; 82010; 82375; 82805; 82962; 83735; 83930; 83935; 84100; 84484; 85025; 85610; 93005; 96361; 96365; 96366; 96372; 99291; G0482; J1630; J1815; J3480; J7030; J7050